=== PATIENT | male | born 1960 ===

== ENCOUNTER 2019-09-29 10:41 | Outpatient (CLI) | payer OTHER ==
[~2019-09-29 10:41] MED LIST: BUSPIRONE HCL5 GM; GLUCOPHAGE XR500 MG; LEVEMIR100 U/M1; NOVOLOG100 U/ML; PERCOCET 5/3251 TAB PO; RECTICARE30 GM TP; RESTORIL7.5 MG; ZOCOR5 MG
== END 2019-09-29 10:48 | disposition home or self-care (01) ==
LOC: RAD 10:41
DX: A63.0 Anogenital (venereal) warts (principal); K62.82 Dysplasia of anus; D12.5 Benign neoplasm of sigmoid colon; D12.0 Benign neoplasm of cecum; D37.5 Neoplasm of uncertain behavior of rectum

== ENCOUNTER → 2019-10-05 07:13 | Outpatient (CLI) | payer OTHER ==
[~2019-10-05 07:13] MED LIST changes: +BANO PO; +GEMFIBROZIL600 MG PO
== END | disposition home or self-care (01) ==
LOC: LAB 07:13
DX: A63.0 Anogenital (venereal) warts (principal); K62.82 Dysplasia of anus; D12.5 Benign neoplasm of sigmoid colon; D12.0 Benign neoplasm of cecum; D12.6 Benign neoplasm of colon, unspecified; D37.5 Neoplasm of uncertain behavior of rectum

== ENCOUNTER 2019-10-14 05:37 | Day surgery (SDC) | payer OTHER ==
[2019-10-14] MEDS ORDERED: ULTRACET PO (08:36)
[2019-10-14] MEDS ORDERED: RECTICARE30 GM TOP (08:37)
== END 2019-10-14 14:00 | disposition home or self-care (01) ==
LOC: CIR.AMB 05:37
DX: D01.3 Carcinoma in situ of anus and anal canal (principal); A63.0 Anogenital (venereal) warts
CPT/HCPCS: 0184T; 64430